=== PATIENT | male | born 1980 | race African-American/Black ===

== ENCOUNTER 2019-04-11 10:08 | Emergency (ER) | payer SELFPAY ==
[2019-04-11] MEDS ORDERED: Silver Sulfadiazine 1% Crm 50 GM Tube TOP ONE (10:16)
--- NOTE | 2019-04-11 10:22 | EDM.PDOC ---
ED HPI GENERAL MEDICAL PROBLEM - General Chief Complaint: Laceration Stated Complaint: INJURY TO RT THUMB Time Seen by Provider: 04/11/19 10:09 Source of Information: Reports: Patient History Limitations: Reports: No Limitations - History of Present Illness INITIAL COMMENTS - FREE TEXT/NARRATIVE: Patient states that he was closing the tailgate on his pickup without a glove on and accidentally pinched his distal thumb in the and gait ED ROS GENERAL - Review of Systems Review Of Systems: ROS reveals no pertinent complaints other than HPI. ED EXAM, SKIN/RASH Exam: See Below Exam Limited By: No Limitations General Appearance: Alert, No Apparent Distress Ears: Normal External Exam Nose: Normal Inspection Throat/Mouth: Normal Inspection Head: Atraumatic, Normocephalic Neck: Normal Inspection Respiratory/Chest: No Respiratory Distress Cardiovascular: Normal Peripheral Pulses, Regular Rate, Rhythm Extremities: Other (Distal Right thumb superficial avulsion, full ROM hesitation or limitation, CMS intact distally) Neurological: Alert, Oriented, Normal Cognition, Normal Gait Skin: Warm, Dry, Intact, Normal Color, No Rash Course - Orders/Labs/Meds Orders: Active Orders 24 hr Category Date Time Status Silver Sulfadiazine [Silvadene 1% Cream 50 GM] Med 04/11/19 10:16 Once 1 gm TOP ONETIME ONE Departure - Departure Time of Disposition: 10:20 Disposition: Home, Self-Care 01 Clinical Impression: Avulsion, finger tip - Discharge Information Referrals: PCP,Unknown [Primary Care Provider] - - My Orders Last 24 Hours: My Active Orders 04/11/19 10:16 Silver Sulfadiazine [Silvadene 1% Cream 50 GM] 1 gm TOP ONETIME ONE - Assessment/Plan Last 24 Hours: My Active Orders 04/11/19 10:16 Silver Sulfadiazine [Silvadene 1% Cream 50 GM] 1 gm TOP ONETIME ONE
[2019-04-11] MEDS ORDERED: Diphtheria,Pertussis(Acell),Tetanus Vaccine 0.5 ML Syringe IM ONE (10:28)
== END 2019-04-11 10:53 | disposition home or self-care (01) ==
LOC: MW.ED 10:08
DX: S61.001A Unspecified open wound of right thumb without damage to nail, initial encounter (principal); Z23 Encounter for immunization; W23.1XXA Caught, crushed, jammed, or pinched between stationary objects, initial encounter
CPT/HCPCS: 90471; 90715; 99283; A9270

== ENCOUNTER 2021-01-30 17:52 | Emergency (ER) | payer MEDICAID ==
[2021-01-30] MEDS ORDERED: Octyl 2-Cyanoacrylate 1 Tube TOP ONE (18:36)
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
== END 2021-01-30 19:20 | disposition home or self-care (01) ==
LOC: MW.ED 17:52
DX: S61.210A Laceration without foreign body of right index finger without damage to nail, initial encounter (principal); W25.XXXA Contact with sharp glass, initial encounter
CPT/HCPCS: 12001; 99282; A9270

== ENCOUNTER 2021-03-12 18:07 | Emergency (ER) | payer MEDICAID, OTHER ==
[2021-03-12] MEDS ORDERED: Benzocaine 20% Topical Spray UD MUCMEM ONE (18:15)
[2021-03-12] MEDS ORDERED: Lidocaine 2% Viscous Solution 15 ML Cup PO ONE (18:15)
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
== END 2021-03-12 19:13 | disposition home or self-care (01) ==
LOC: MW.ED 18:07
DX: K02.9 Dental caries, unspecified (principal)
CPT/HCPCS: 99282; A9270; 99283

== ENCOUNTER 2021-12-03 18:39 | Emergency (ER) | payer MEDICAID ==
[2021-12-03] MEDS ORDERED: Sodium Chloride 0.9% 2.5 ML Syringe FLUSH PRN (18:53)
[2021-12-03] MEDS ORDERED: Sodium Chloride 0.9% 10 ML Syringe FLUSH PRN (18:53)
[2021-12-03 19:16] LABS: BLOOD UREA NITROGEN,BUN 11 mg/dL (7.0-18.0); CARBON DIOXIDE,CO2 26.7 mmol/L (21.0-32.0); CHLORIDE,CL 103 mmol/L (98-107); GLUCOSE RANDOM 101 mg/dL (74-106); POTASSIUM,K 3.5 mmol/L (3.5-5.1); SODIUM,NA 139 mmol/L (136-148)
--- NOTE | 2021-12-03 19:42 | PCM.EKG ---
#1 Interpretation EKG Date: 12/03/21 Time: 18:58 Rhythm: NSR Rate (Beats/Min): 64 Alfred: Normal P-Wave: Present QRS: Normal ST-T: Normal QT: Normal Comparison: NA - No Prior EKG EKG Interpretation Comments: Sinus Rhythm
--- NOTE | 2021-12-03 20:15 | CT ---
INDICATION: Syncope, headache TECHNIQUE: CT Head without i.v. contrast. Coronal and sagittal reformats were obtained. COMPARISON: None FINDINGS: CSF space: The ventricles are normal for age. Brain: No evidence of mass, acute infarction or hemorrhage is seen. No mass-effect or midline shift is seen. The brain parenchyma is otherwise normal in appearance with preservation of the emmanuel-white matter junction. Calvarium: The visualized paranasal sinuses are well aerated. The mastoid air cells are clear. The visualized orbits are grossly unremarkable. The calvarium is unremarkable in appearance with no fractures identified. IMPRESSION: 1. No evidence of acute infarction, intracranial hemorrhage, or mass-effect seen. Please note that all CT scans at this facility use dose modulation, iterative reconstruction, and/or weight-based dosing when appropriate to reduce radiation dose to as low as reasonably achievable. Dictated by: Kevin Child MD @ 12/03/2021 20:13:57 (Electronically Signed)
--- NOTE | 2021-12-03 21:08 | CR ---
INDICATION: Chest pain, shortness of breath TECHNIQUE: Chest radiograph 1 view COMPARISON: None FINDINGS: Mediastinum: The mediastinum is normal in appearance. The heart silhouette is normal in size and morphology. Lung: Both lungs are unremarkable in appearance with small lung volumes. No sign of pleural effusion seen. No pneumothorax is identified. Bone and Soft tissue: Unremarkable for age. IMPRESSION: 1. No acute cardiopulmonary disease is seen. Dictated by: Kevin Child MD @ 12/03/2021 21:06:55 (Electronically Signed)
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
== END 2021-12-03 22:00 | disposition home or self-care (01) ==
LOC: MW.ED 18:39
DX: R55 Syncope and collapse (principal)
CPT/HCPCS: 36415; 70450; 70450-26; 71045; 71045-26; 80053; 84484; 85025; 85379; 99285-25

== ENCOUNTER 2022-08-27 00:01 | Emergency (ER) | payer SELFPAY ==
[2022-08-27 01:23] LABS: CARBON DIOXIDE,CO2 27.7 mmol/L (21.0-32.0); POTASSIUM,K 4.6 mmol/L (3.5-5.1)
== END 2022-08-27 02:23 | disposition home or self-care (01) ==
LOC: MW.ED 00:01
DX: R07.89 Other chest pain (principal)
CPT/HCPCS: 36415; 71046; 71046-26; 80053; 83735; 84484; 85025; 93005; 93010; 99284; 99285